=== PATIENT | female | born 1975 | race Caucasian/White ===

== ENCOUNTER 2020-04-04 09:36 | Emergency (ER) | payer OTHER ==
[~2020-04-04] VITALS: Ht 167.6 cm; Wt 81.6 kg
[2020-04-04 09:40] VITALS: BP 119/81
--- NOTE | 2020-04-04 10:18 | NUR ---
Patient discharged to [facility] in stable condition. Written and verbal after care instructions given. Patient verbalizes understanding of instruction.
== END 2020-04-04 10:20 ==
LOC: ER 09:47
DX: L70.9 Acne, unspecified (principal); Z02.89 Encounter for other administrative examinations; Z98.890 Other specified postprocedural states; Z91.018 Allergy to other foods; Z88.8 Allergy status to other drugs, medicaments and biological substances

== ENCOUNTER 2022-02-23 15:31 | Emergency (ER) | payer OTHER ==
[~2022-02-23] VITALS: Ht 172.7 cm; Wt 131.5 kg
[2022-02-23] MEDS ORDERED: HYDROCODONE/APAP 5/325MG TABLET ONE (16:31)
[2022-02-23] MEDS: HYDROCODONE/APAP 5/325MG TABLET PO ONE (16:35)
[2022-02-23] MEDS ORDERED: HYDR-4303 PO (17:04)
[2022-02-23 17:12] VITALS: BP 118/77
--- NOTE | 2022-02-23 17:14 | NUR ---
Patient left accompanied by [employer] in no distress.
== END 2022-02-23 17:14 ==
LOC: ER 15:32
DX: S81.802A Unspecified open wound, left lower leg, initial encounter (principal); S81.801A Unspecified open wound, right lower leg, initial encounter; F41.9 Anxiety disorder, unspecified; G89.29 Other chronic pain; M79.604 Pain in right leg; M79.605 Pain in left leg; E66.01 Morbid (severe) obesity due to excess calories; Z68.41 Body mass index [BMI] 40.0-44.9, adult; Z98.890 Other specified postprocedural states; Z91.018 Allergy to other foods; Z88.8 Allergy status to other drugs, medicaments and biological substances; X58.XXXA Exposure to other specified factors, initial encounter; Y93.89 Activity, other specified; Y92.89 Other specified places as the place of occurrence of the external cause; Y99.8 Other external cause status